=== PATIENT | male | born 1965 | race African-American/Black ===

== ENCOUNTER 2023-11-16 12:43 | Emergency (ER) | payer OTHER ==
[~2023-11-16] VITALS: Ht 172.7 cm; Wt 84.0 kg
[2023-11-16 12:58] VITALS: TEMP 98.7; O2SAT 98
[2023-11-16 14:38] VITALS: BP 132/74; PULSE 86; RESP 16
[2023-11-16] MEDS: IBUPROFEN 600MG TABLET PO ONE (14:38)
[2023-11-16] MEDS ORDERED: IBUP-2029 MT (15:09)
== END 2023-11-16 15:40 | disposition home or self-care (01) ==
LOC: ER 12:43
DX: M54.9 Dorsalgia, unspecified (principal)
CPT/HCPCS: 72070; 99283

== ENCOUNTER 2023-11-16 18:30 | Emergency (ER) | payer OTHER ==
[~2023-11-16] VITALS: Ht 175.3 cm; Wt 82.0 kg
[~2023-11-16 18:30] MED LIST: IBUP-2029 MT
[2023-11-16 18:38] VITALS: O2SAT 98
[2023-11-16] MEDS ORDERED: AMLODIPINE 10MG TABLET PO ONE (21:15)
[2023-11-16] MEDS: AMLODIPINE 5MG TABLET PO NR (21:30)
[2023-11-16] MEDS: METOPROLOL TARTRATE 50MG TABLET PO ONE (22:45)
[2023-11-17] MEDS: CLONIDINE 0.1MG TABLET PO NR (00:30)
[2023-11-17 01:50] VITALS: BP 168/91; PULSE 78; RESP 20; TEMP 36.66960; O2SAT 99
== END 2023-11-17 01:35 | disposition home or self-care (01) ==
LOC: ER 18:30
DX: M54.9 Dorsalgia, unspecified (principal); I10 Essential (primary) hypertension; Z59.82 Transportation insecurity
CPT/HCPCS: 99284